=== PATIENT | female | born 1965 | race Caucasian/White ===

== ENCOUNTER 2019-08-30 08:11 | Emergency (ER) | payer OTHER ==
[~2019-08-30] VITALS: Ht 167.6 cm; Wt 111.1 kg
[~2019-08-30 08:11] MED LIST: ALBU90OI INH; Amoxicillin875 MG PO; Flonase 0.05% N16 GM; IBUP800 PO; Neurontin 300300 MG PO; PSEU120ER PO; Roxicodone5 MG PO; Zovirax800 MG PO
[2019-08-30] MEDS ORDERED: METF500 PO (08:34)
[2019-08-30] MEDS ORDERED: Cyclobenzaprine5 MG PO ×2 (08:34→12:39)
[2019-08-30] MEDS ORDERED: Mobic15 MG PO (08:34)
[2019-08-30 09:41] LABS: BASOPHILS ABSOLUTE AUTO 0.06 K/mm3 (0.00-0.23); BASOPHILS PERCENT AUTO 1 % (0-2); EOSINOPHILS ABSOLUTE AUTO 0.34 K/mm3 (0.00-0.68); EOSINOPHILS PERCENT AUTO 3 % (0-6); Hematocrit 47.8 % (33.0-51.0); Hemoglobin 15.8 g/dL (11.5-16.0); IMMATURE GRAN ABSOLUTE AUTO 0.05 K/mm3 (0.00-0.10); IMMATURE GRAN PERCENT AUTO 1 % (0-1); LYMPHOCYTES ABSOLUTE AUTO 1.67 K/mm3 (0.84-5.20); LYMPHOCYTES PERCENT AUTO 16 % (21-46); MONOCYTES ABSOLUTE AUTO 0.64 K/mm3 (0.16-1.47); MONOCYTES PERCENT AUTO 6 % (4-13); Mean Corpuscular HGB 27.2 pg (26.0-34.0); Mean Corpuscular HGB Conc 33.1 g/dL (31.5-36.5); Mean Corpuscular Volume 82 fL (80-100); Mean Platelet Volume 9.3 fL (9.1-12.4); NEUTROPHILS ABSOLUTE AUTO 7.52 K/mm3 (1.96-9.15); NEUTROPHILS PERCENT AUTO 73 % (41-73); Platelet Count 397 K/mm3 (150-400); RDW Coefficient Variation 12.8 % (11.7-14.2); RDW Standard Deviation 38.4 fL (35.1-46.3); White Blood Cell Count 10.28 K/mm3 (4.00-11.30)
[2019-08-30 09:43] LABS: Source, Urine Clean Catch
[2019-08-30 10:00] LABS: Alanine Aminotransfer (ALT/SGP 36 U/L (12-78); Albumin, Blood 3.7 g/dL (3.4-5.0); Albumin/Globulin Ratio 0.9 (0.8-1.8); Alk Phos 123 U/L (50-136); Anion Gap 6 mmol/L (6-16); Aspartate Aminotrans (AST/SGOT 16 U/L (12-37); Bilirubin, Total 0.4 mg/dL (0.1-1.0); Blood Urea Nitrogen 16 mg/dL (8-24); Bun/Creatinine Ratio 29.1 (12.0-20.0); CO2, Blood 28 mmol/L (21-32); Calcium, Blood 9.3 mg/dL (8.5-10.1); Chloride, Blood 102 mmol/L (98-108); Creatinine, Blood 0.55 mg/dL (0.40-1.00); Glomerular Filtration Rate >60 (60-); Glucose, Blood 265 mg/dL (70-99); Potassium, Blood 4.1 mmol/L (3.5-5.5); Sodium, Blood 136 mmol/L (136-145); Total Protein, Blood 7.7 g/dL (6.4-8.2)
[2019-08-30 10:06] LABS: Bilirubin, Urine Neg (Neg); Blood, Urine Neg (Neg); Glucose Qualitative, Urine 1+ (Neg); Ketones, Urine 2+ (Neg); Leukocyte Esterase, Urine Neg (Neg); Nitrite, Urine Neg (Neg); Protein, Urine 1+ (Neg); Specific Gravity, Urine 1.015 (1.003-1.022); Urobilinogen, Urine NORM (Normal)
[2019-08-30 10:23] LABS: Appearance, Urine Clear (Clear); Color, Urine Yellow (P-Yellow)
[2019-08-30] MEDS ORDERED: Percocet 5-3251 EACH PO (12:39)
== END 2019-08-30 12:57 | disposition home or self-care (01) ==
LOC: ER 08:11
PROVIDERS: Emergency Medicine
DX: M47.897 Other spondylosis, lumbosacral region (principal); J06.9 Acute upper respiratory infection, unspecified; E11.9 Type 2 diabetes mellitus without complications; J45.909 Unspecified asthma, uncomplicated; Z79.899 Other long term (current) drug therapy; Z79.84 Long term (current) use of oral hypoglycemic drugs
CPT/HCPCS: 36415; 72148; 80053; 85025; 85651; 96374; 96375; 99284-25; J1170; J1885; J2060; J2405

== ENCOUNTER 2019-11-08 14:27 | Emergency (ER) | payer BC ==
[~2019-11-08] VITALS: Ht 170.2 cm; Wt 115.2 kg
[~2019-11-08 14:27] MED LIST changes: +Cyclobenzaprine5 MG PO; +METF500 PO; +Mobic15 MG PO; +Percocet 5-3251 EACH PO
[2019-11-08] MEDS ORDERED: IBUP600 PO (14:55)
[2019-11-08] MEDS ORDERED: Metformin HCl1000 MG PO (14:55)
[2019-11-08] MEDS ORDERED: MELO7.5 (14:55)
[2019-11-08] MEDS ORDERED: INSULANPEN SC (14:55)
[2019-11-08] MEDS ORDERED: Ventolin/Prove6.7 GM (14:55)
== END 2019-11-08 16:03 | disposition home or self-care (01) ==
LOC: ER 14:27
DX: M23.92 Unspecified internal derangement of left knee (principal); E11.9 Type 2 diabetes mellitus without complications; Z79.899 Other long term (current) drug therapy; Z79.84 Long term (current) use of oral hypoglycemic drugs
CPT/HCPCS: 73562-LT; 99283-25; A9270

== ENCOUNTER 2021-02-20 23:26 | Emergency (ER) | payer BC ==
[~2021-02-20] VITALS: Ht 170.2 cm; Wt 111.1 kg
[~2021-02-20 23:26] MED LIST changes: +IBUP600 PO; +INSULANPEN SC; +MELO7.5; +Metformin HCl1000 MG PO; +Ventolin/Prove6.7 GM
== END 2021-02-21 00:33 | disposition home or self-care (01) ==
LOC: ER 23:26
DX: E11.65 Type 2 diabetes mellitus with hyperglycemia (principal); J45.909 Unspecified asthma, uncomplicated; Z79.4 Long term (current) use of insulin; Z79.899 Other long term (current) drug therapy
CPT/HCPCS: 82947; 99283

== ENCOUNTER → 2022-07-19 | Outpatient (CLI) | payer BC ==
[~2022-07-19] MED LIST changes: +Aspir 8181 MG PO; +MECL25 PO
[2022-07-19 12:52] LABS: BASOPHILS ABSOLUTE AUTO 0.07 K/mm3 (0.00-0.23); BASOPHILS PERCENT AUTO 1 % (0-2); EOSINOPHILS PERCENT AUTO 2 % (0-6); Hematocrit 42.9 % (33.0-51.0); Hemoglobin 14.9 g/dL (11.5-16.0); IMMATURE GRAN ABSOLUTE AUTO 0.08 K/mm3 (0.00-0.10); IMMATURE GRAN PERCENT AUTO 1 % (0-1); LYMPHOCYTES ABSOLUTE AUTO 1.13 K/mm3 (0.84-5.20); LYMPHOCYTES PERCENT AUTO 11 % (21-46); MONOCYTES ABSOLUTE AUTO 0.59 K/mm3 (0.16-1.47); MONOCYTES PERCENT AUTO 6 % (4-13); Mean Corpuscular HGB 28.4 pg (26.0-34.0); Mean Corpuscular HGB Conc 34.7 g/dL (31.5-36.5); Mean Corpuscular Volume 82 fL (80-100); Mean Platelet Volume 9.5 fL (9.1-12.4); NEUTROPHILS ABSOLUTE AUTO 8.52 K/mm3 (1.96-9.15); NEUTROPHILS PERCENT AUTO 80 % (41-73); Platelet Count 376 K/mm3 (150-400); RDW Coefficient Variation 12.7 % (11.7-14.2); RDW Standard Deviation 37.5 fL (35.1-46.3); Red Blood Cell Count 5.25 M/mm3 (3.80-5.20); White Blood Cell Count 10.59 K/mm3 (4.00-11.30)
[2022-07-19 13:36] LABS: Bun/Creatinine Ratio 29.2 (12.0-20.0); Calcium, Blood 9.2 mg/dL (8.5-10.1); Creatinine, Blood 0.45 mg/dL (0.40-1.00); Potassium, Blood 4.1 mmol/L (3.5-5.5)
== END ==
LOC: LAB SHORT 12:49
PROVIDERS: Physician Assistant Surgical
DX: R42 Dizziness and giddiness (principal)
CPT/HCPCS: 80048; 85025

== ENCOUNTER 2022-07-20 11:04 | Emergency (ER) | payer BC ==
[~2022-07-20] VITALS: Ht 167.6 cm; Wt 110.7 kg
[~2022-07-20 11:04] MED LIST changes: -Aspir 8181 MG PO; -MECL25 PO
[2022-07-20 11:37] LABS: BASOPHILS ABSOLUTE AUTO 0.06 K/mm3 (0.00-0.23); BASOPHILS PERCENT AUTO 1 % (0-2); EOSINOPHILS ABSOLUTE AUTO 0.23 K/mm3 (0.00-0.68); EOSINOPHILS PERCENT AUTO 2 % (0-6); Hematocrit 43.4 % (33.0-51.0); Hemoglobin 14.5 g/dL (11.5-16.0); IMMATURE GRAN ABSOLUTE AUTO 0.07 K/mm3 (0.00-0.10); IMMATURE GRAN PERCENT AUTO 1 % (0-1); LYMPHOCYTES ABSOLUTE AUTO 1.56 K/mm3 (0.84-5.20); LYMPHOCYTES PERCENT AUTO 15 % (21-46); MONOCYTES ABSOLUTE AUTO 0.59 K/mm3 (0.16-1.47); MONOCYTES PERCENT AUTO 6 % (4-13); Mean Corpuscular HGB 27.9 pg (26.0-34.0); Mean Corpuscular HGB Conc 33.4 g/dL (31.5-36.5); Mean Corpuscular Volume 84 fL (80-100); Mean Platelet Volume 9.5 fL (9.1-12.4); NEUTROPHILS PERCENT AUTO 75 % (41-73); Platelet Count 390 K/mm3 (150-400); RDW Coefficient Variation 12.7 % (11.7-14.2); RDW Standard Deviation 38.8 fL (35.1-46.3); White Blood Cell Count 10.11 K/mm3 (4.00-11.30)
[2022-07-20 11:58] LABS: Albumin, Blood 3.4 g/dL (3.4-5.0); Bilirubin, Total 0.3 mg/dL (0.1-1.0); Bun/Creatinine Ratio 18.6 (12.0-20.0); Calcium, Blood 9.1 mg/dL (8.5-10.1); Creatinine, Blood 0.54 mg/dL (0.40-1.00); Globulin, Blood 3.3 g/dL (2.2-4.0); Potassium, Blood 4.2 mmol/L (3.5-5.5); Total Protein, Blood 6.7 g/dL (6.4-8.2)
[2022-07-20] MEDS ORDERED: MECL25 PO (13:58)
[2022-07-20] MEDS ORDERED: Aspir 8181 MG PO (13:58)
== END 2022-07-20 14:22 | disposition home or self-care (01) ==
LOC: ER 11:04
PROVIDERS: Physician Assistant
DX: G45.9 Transient cerebral ischemic attack, unspecified (principal); H81.399 Other peripheral vertigo, unspecified ear; E11.65 Type 2 diabetes mellitus with hyperglycemia; J45.909 Unspecified asthma, uncomplicated; Z79.899 Other long term (current) drug therapy; Z79.4 Long term (current) use of insulin
CPT/HCPCS: 36415; 70450; 80053; 82947; 85025; 93005; 93010; A9270; J1815; J7030

== ENCOUNTER 2023-01-13 03:38 | Emergency (ER) | payer BC ==
[~2023-01-13] VITALS: Ht 167.6 cm; Wt 108.9 kg
[~2023-01-13 03:38] MED LIST changes: +Aspir 8181 MG PO; +MECL25 PO
[2023-01-13 04:24] LABS: BASOPHILS ABSOLUTE AUTO 0.07 K/mm3 (0.00-0.23); BASOPHILS PERCENT AUTO 1 % (0-2); EOSINOPHILS ABSOLUTE AUTO 0.38 K/mm3 (0.00-0.68); EOSINOPHILS PERCENT AUTO 4 % (0-6); Hematocrit 41.1 % (33.0-51.0); Hemoglobin 13.9 g/dL (11.5-16.0); IMMATURE GRAN ABSOLUTE AUTO 0.05 K/mm3 (0.00-0.10); IMMATURE GRAN PERCENT AUTO 1 % (0-1); LYMPHOCYTES ABSOLUTE AUTO 2.07 K/mm3 (0.84-5.20); LYMPHOCYTES PERCENT AUTO 19 % (21-46); MONOCYTES ABSOLUTE AUTO 0.74 K/mm3 (0.16-1.47); MONOCYTES PERCENT AUTO 7 % (4-13); Mean Corpuscular HGB 28.4 pg (26.0-34.0); Mean Corpuscular HGB Conc 33.8 g/dL (31.5-36.5); Mean Corpuscular Volume 84 fL (80-100); Mean Platelet Volume 9.5 fL (9.1-12.4); NEUTROPHILS ABSOLUTE AUTO 7.34 K/mm3 (1.96-9.15); NEUTROPHILS PERCENT AUTO 69 % (41-73); Platelet Count 373 K/mm3 (150-400); RDW Coefficient Variation 12.8 % (11.7-14.2); RDW Standard Deviation 39.2 fL (35.1-46.3); Red Blood Cell Count 4.89 M/mm3 (3.80-5.20); White Blood Cell Count 10.65 K/mm3 (4.00-11.30)
[2023-01-13 04:32] LABS: Bun/Creatinine Ratio 26.2 (12.0-20.0); Calcium, Blood 8.4 mg/dL (8.5-10.1); Creatinine, Blood 0.65 mg/dL (0.40-1.00); Potassium, Blood 3.9 mmol/L (3.5-5.5)
[2023-01-13] MEDS ORDERED: Robaxin750 MG PO (05:54)
== END 2023-01-13 06:11 | disposition home or self-care (01) ==
LOC: ER 03:38
PROVIDERS: Student in an Organized Health Care Education/Training Program
DX: M62.830 Muscle spasm of back (principal); S16.1XXA Strain of muscle, fascia and tendon at neck level, initial encounter; X58.XXXA Exposure to other specified factors, initial encounter; F41.9 Anxiety disorder, unspecified; E11.9 Type 2 diabetes mellitus without complications; J45.909 Unspecified asthma, uncomplicated; Z79.899 Other long term (current) drug therapy; Z79.4 Long term (current) use of insulin; Z79.82 Long term (current) use of aspirin
CPT/HCPCS: 80048; 83735; 85025; 93005; 93010; 96374; 99284-25; A9270; J1885

== ENCOUNTER → 2024-05-17 | Outpatient (CLI) | payer BC ==
[~2024-05-17] MED LIST changes: +ONDA4ODT MM; +Robaxin750 MG PO
== END ==
LOC: LAB 16:22 → LAB SHORT 16:22
DX: N39.0 Urinary tract infection, site not specified (principal)
CPT/HCPCS: 87077; 87086; 87186

== ENCOUNTER → 2025-02-19 | Outpatient (CLI) | payer BC ==
[2025-02-19 17:23] LABS: BASOPHILS ABSOLUTE AUTO 0.08 K/mm3 (0.00-0.23); BASOPHILS PERCENT AUTO 1 % (0-2); EOSINOPHILS PERCENT AUTO 5 % (0-6); Hematocrit 42.3 % (33.0-51.0); Hemoglobin 14.1 g/dL (11.5-16.0); IMMATURE GRAN ABSOLUTE AUTO 0.06 K/mm3 (0.00-0.10); IMMATURE GRAN PERCENT AUTO 1 % (0-1); LYMPHOCYTES ABSOLUTE AUTO 2.17 K/mm3 (0.84-5.20); LYMPHOCYTES PERCENT AUTO 22 % (21-46); MONOCYTES ABSOLUTE AUTO 0.65 K/mm3 (0.16-1.47); MONOCYTES PERCENT AUTO 7 % (4-13); Mean Corpuscular HGB 27.8 pg (26.0-34.0); Mean Corpuscular HGB Conc 33.3 g/dL (31.5-36.5); Mean Corpuscular Volume 83 fL (80-100); Mean Platelet Volume 9.2 fL (9.1-12.4); NEUTROPHILS ABSOLUTE AUTO 6.25 K/mm3 (1.96-9.15); NEUTROPHILS PERCENT AUTO 65 % (41-73); Platelet Count 450 K/mm3 (150-400); RDW Coefficient Variation 12.8 % (11.7-14.2); Red Blood Cell Count 5.08 M/mm3 (3.80-5.20); White Blood Cell Count 9.71 K/mm3 (4.00-11.30)
[2025-02-19 17:35] LABS: Albumin, Blood 3.6 g/dL (3.4-5.0); Albumin/Globulin Ratio 0.9 (0.8-1.8); Bilirubin, Total 0.3 mg/dL (0.1-1.0); Bun/Creatinine Ratio 16.9 (12.0-20.0); Calcium, Blood 9.4 mg/dL (8.5-10.1); Creatinine, Blood 0.71 mg/dL (0.40-1.00); Globulin, Blood 3.9 g/dL (2.2-4.0); Potassium, Blood 3.7 mmol/L (3.5-5.5); Total Protein, Blood 7.5 g/dL (6.4-8.2)
== END ==
LOC: LAB 17:18 → LAB SHORT 17:18
PROVIDERS: Physician Assistant
DX: I10 Essential (primary) hypertension (principal); E10.69 Type 1 diabetes mellitus with other specified complication
CPT/HCPCS: 80053; 83036; 85025

== ENCOUNTER → 2025-06-04 | Outpatient (CLI) | payer BC ==
[2025-06-04 20:03] LABS: Creatinine, Urine Random 9.21 mg/dL (27.00-270.00)
[2025-06-04 20:05] LABS: Microalb/Creat Ratio UR, Rand Unable to Calculate mg/g (0.000-30.000); Microalbumin, Random Urine <5.000 mg/L (0.000-20.000)
== END ==
LOC: LAB 16:01 → LAB SHORT 16:01
PROVIDERS: Family Medicine
DX: E11.9 Type 2 diabetes mellitus without complications (principal)
CPT/HCPCS: 82043; 82570